=== PATIENT | male | born 1945 | race African-American/Black ===

== ENCOUNTER 2019-06-15 18:16 | Observation (INO) ==
[2019-06-15] MEDS ORDERED: ASPIRIN PO ONE ×2 (18:30→19:40)
[2019-06-15 18:40] LABS: BASO# 0.03 X1000 (0.0-0.2); BASO% 0.5 % (0.0-0.8); EOS# 0.19 X1000 (0.0-0.7); EOS% 2.9 % (0.0-10.0); HEMATOCRIT 40.4 % (42.0-52.0); HEMOGLOBIN 13.1 g/dL (14.0-18.0); LYMPH# 2.18 X1000 (1.2-3.4); LYMPH% 33.3 % (20.5-51.1); MCH 27.9 PG (27-31); MCHC 32.4 g/dL (33-37); MONO# 0.55 X1000 (0.11-0.59); MONO% 8.4 % (1.7-9.3); MPV 11.4 FL (7.4-10.4); NEUT% 54.9 % (42.2-75.2); PLT 165 X1000 (130-400); RDW 14.2 % (11.5-14.5); WBC 6.55 X1000 (4.8-10.8)
[2019-06-15 18:52] LABS: INR 0.95; PROTIME 12.8 Seconds (11.0-16.0)
[2019-06-15 18:53] LABS: PTT 28.5 Seconds (22.3-41.8)
--- NOTE | 2019-06-15 18:56 | Diag Imaging Result Doc PS360 ---
EXAM: CHEST-2 VIEWS - 06/15/2019 HISTORY: CP TECHNIQUE: Chest two views COMPARISON: 04/17/2012 FINDINGS: Heart size is normal. There is mild scarring at the left base, possibly from old granulomatous disease.. The lungs otherwise appear clear. There is no pleural effusion or pneumothorax identified. IMPRESSION: Mild scarring at left base. No evidence of acute disease. Electronically signed by Brandon Day 06/15/2019 6:54 PM
[2019-06-15 18:57] LABS: AGAP 17; ALB/GLOB RATIO 1.5; ALBUMIN 4.1 g/dL (3.5-5.0); ALKALINE PHOSPHATASE 71 U/L (32-122); BUN 13 mg/dL (8-22); CALCIUM 9.6 mg/dL (8.8-10.2); CHLORIDE 103 mmol/L (98-107); COSMO 291; CREATININE 1.1 mg/dL (0.7-1.2); ESTIMATED GFR > 60; GLUCOSE 212 mg/dL (70-104); GOT 23 U/L (10-34); GPT 12 U/L (10-44); POTASSIUM 4.2 mmol/L (3.5-5.1); SODIUM 143 mmol/L (136-145); TCO2 23 mmol/L (25-35); TOTAL BILIRUBIN 0.34 mg/dL (0.20-1.00); TOTAL PROTEIN 6.8 g/dL (6.3-8.3)
[2019-06-15 19:00] LABS: CK PROFILE 244 U/L (24-204)
--- NOTE | 2019-06-15 19:02 | PROVIDER DOCUMENTATION ---
HPI-General Adult - General Chief Complaint: Chest Pain Stated Complaint: CHEST PAIN/NUMBNESS IN FEET/SOB Time Seen by Provider: 06/15/19 18:59 Source: patient Allergies/Adverse Reactions: Patient Allergies Allergy/AdvReac Type Severity Reaction Status Date / Time No Known Allergies Allergy Verified 02/10/12 21:51 Home Medications: Home Medication List Medication Instructions Recorded Confirmed Last Taken Type Enalapril Maleate [Vasotec] 10 mg PO DAILY 02/10/12 02/10/12 02/10/12 07:00 History Ezetimibe/Simvastatin [Vytorin 1 each PO DAILY 02/10/12 02/10/12 02/10/12 07:00 History 10-20 mg Tablet] Furosemide [Lasix] 40 mg PO DAILY 02/10/12 02/10/12 02/10/12 07:00 History Glyburide/Metformin HCl 1 each PO BID 02/10/12 02/10/12 02/10/12 07:00 History [Glyburide-Metformin 5-500 mg] Terazosin HCl 5 mg PO DAILY 02/10/12 02/10/12 02/10/12 07:00 History Levofloxacin [Levaquin] 500 mg PO DAILY #7 tablet 04/30/12 Unknown Rx Tramadol/APAP [Ultracet 1 each PO Q8H #30 tablet 04/30/12 Unknown Rx 37.5MG/325Mg] - History of Present Illness -Gen Adult Nature of Presenting Problems: 74 year old AA Male presenting to the ED c/o 3 day h/o intermitent substernal pressure like chest pain lasting approximately 1 minute when it occurs is exacerbated with walking and exertion but also occurs at rest. PMH is significant for DMII, HLD, and an "irregular heartbeat". Review of Systems - Adult - REVIEW OF SYSTEMS - ADULT Constitutional: denies: chills, fever, fatique, night sweats Eyes: reports: no symptoms reported Ears, Nose, Mouth & Throat: reports: no symptoms reported Cardiovascular: reports: chest pain, edema (bilateral LE's left worse than right), palpitations Respiratory: reports: dyspnea on exertion Gastrointestinal: reports: no symptoms reported Genitourinary: reports: no symptoms reported Musculoskeletal: reports: no symptoms reported Integumentary: reports: no symptoms reported Neurological: reports: no symptoms reported Psychiatric: reports: no symptoms reported Endocrine: reports: no symptoms reported Hematologic/Lymphatic: reports: no symptoms reported Allergic/Immunologic: reports: no symptoms reported All Other Systems: Reviewed and Negative Past History - Adult - PAST MEDICAL HISTORY-ADULT Review of Records: reports: Old Records Reviewed, Nursing Assessment Review, Medications Reviewed, Social history reviewed & non-contributory. Major Childhood Illnesses: reports: denies history Cardiovascular: reports: hyperlipidemia Respiratory: reports: other (former smoker, scaring of left lung base) Gastrointestinal: reports: denies history Obstetrical/Gynecological: reports: denies history Genitourinary: reports: denies history Musculoskeletal: reports: denies history Psychiatric: reports: denies history Diabetes Type: Type 2 - PRIOR SURGERIES/PROCEDURES Surgical/Procedure History: reports: reviewed, not pertinent - IMMUNIZATION STATUS Flu Vaccine: NUTD - FAMILY HISTORY Family History: reviewed, not pertinent - SOCIAL HISTORY Smoking: quit greater than 1 year Substance Use: none/never Alcohol Use Frequency: never Physical Exam-General - PHYSICAL EXAM-ADULT Initial Vital Signs Reviewed: Yes (low O2) - CONSTITUTIONAL General Appearance: appears well, alert, no apparent distress - EYES Eyes: PERRL/EOMI - HEAD, EARS, NOSE, MOUTH & THROAT HENMT: normocephalic/atraumatic. negative: moist mucous membranes - NECK Neck: non-tender, full range of motion, supple, other (buccal neck) - RESPIRATORY Respiratory: chest non-tender, lungs clear, normal breath sounds - CARDIOVASCULAR Cardiovascular: normal peripheral pulses, regular rate, rhythm, no murmur, other (bilateral LE edema, left worse than right.) - GASTROINTESTINAL (ABDOMEN) Abdominal Exam: non tender, soft - MUSCULOSKELETAL Extremity: normal range of motion, non-tender, normal gait, calf tenderness (Left), pedal edema (left > right) Peripheral Pulses: radial (R): 2+, radial (L): 2+ - SKIN Integumentary: normal color, warm/dry - NEUROLOGIC Neurologic: grossly normal, no motor/sensory deficits - PSYCHIATRIC Psych/Mental Status: normal mood/affect, oriented x 3 Progress - PLAN OF CARE/RESULTS Progress/Plan/Lab Results: Vital Signs - 8 hr 06/15/19 18:23 Temperature 98.0 F Pulse Rate 78 Respiratory Rate 18 Blood Pressure 132/72 O2 Sat by Pulse Oximetry 94 L Laboratory Results - last 24 hr 06/15/19 06/15/19 06/15/19 18:31 18:31 18:31 WBC 6.55 RBC 4.70 Hgb 13.1 L Hct 40.4 L MCV 86.0 MCH 27.9 MCHC 32.4 L RDW Std Deviation 14.2 Plt Count 165 MPV 11.4 H Immature Gran % (Auto) 0.0 Neut % (Auto) 54.9 Lymph % (Auto) 33.3 Murray % (Auto) 8.4 Eos % (Auto) 2.9 Baso % (Auto) 0.5 Immature Gran # (Auto) 0.00 Neut # (Auto) 3.60 Lymph # (Auto) 2.18 Murray # (Auto) 0.55 Eos # (Auto) 0.19 Baso # (Auto) 0.03 PT 12.8 INR 0.95 PTT (Actin FS) 28.5 Sodium 143 Potassium 4.2 Chloride 103 Carbon Dioxide 23 L Anion Gap 17 BUN 13 Creatinine 1.1 Estimated GFR/1.73 m2 > 60 BUN/Creatinine Ratio 12 Glucose 212 H Calculated Osmolality 291 Calcium 9.6 Total Bilirubin 0.34 AST 23 ALT 12 Alkaline Phosphatase 71 Creatine Kinase 244 H Troponin T Total Protein 6.8 Albumin 4.1 Globulin 2.7 Albumin/Globulin Ratio 1.5 06/15/19 18:31 WBC RBC Hgb Hct MCV MCH MCHC RDW Std Deviation Plt Count MPV Immature Gran % (Auto) Neut % (Auto) Lymph % (Auto) Murray % (Auto) Eos % (Auto) Baso % (Auto) Immature Gran # (Auto) Neut # (Auto) Lymph # (Auto) Murray # (Auto) Eos # (Auto) Baso # (Auto) PT INR PTT (Actin FS) Sodium Potassium Chloride Carbon Dioxide Anion Gap BUN Creatinine Estimated GFR/1.73 m2 BUN/Creatinine Ratio Glucose Calculated Osmolality Calcium Total Bilirubin AST ALT Alkaline Phosphatase Creatine Kinase Troponin T < 0.010 Total Protein Albumin Globulin Albumin/Globulin Ratio Orders Category Date Time Status Cardiac Monitoring DIRECTED Care 06/15/19 18:30 Active Oxygen Therapy- ED Nursing DIRECTED Care 06/15/19 18:30 Active Saline Loc NOW Care 06/15/19 18:30 Active CHEST-2 VIEWS [RAD] Stat Exams 06/15/19 18:30 Completed CBC WITH ELECTRONIC DIFF [HEME] Stat Lab 06/15/19 18:31 Completed CK PROFILE [SP CHEM] Stat Lab 06/15/19 18:31 Results COMPREHENSIVE METABOLIC PANEL [CHEM] Stat Lab 06/15/19 18:31 Results PRO B-NATRIURETIC PEPTIDE Stat Lab 06/15/19 18:31 Received PROTIME WITH INR [COAG] Stat Lab 06/15/19 18:31 Completed PTT [COAG] Stat Lab 06/15/19 18:31 Completed TROPONIN T Stat Lab 06/15/19 18:31 Completed Aspirin Med 06/15/19 18:30 Discontinued 325 mg PO NOW ONE CP/SOB/Palp >45 yrs of Age Stat Oth 06/15/19 18:30 Ordered EKG [EKG] Stat Ther 06/15/19 18:30 Ordered HEART Score: 6 Well's PE Score: 3 Result Diagrams: 06/15/19 18:31 06/15/19 18:31 - XRAY 1 XRAY Study: Chest Impression: Abnormal (EXAM: CHEST-2 VIEWS - 06/15/2019 HISTORY: CP TECHNIQUE: Chest two views COMPARISON: 04/17/2012 FINDINGS: Heart size is normal. There is mild scarring at the left base, possibly from old granulomatous disease.. The lungs otherwise appear clear. There is no pleural effusion or pneumothorax identified. IMPRESSION: Mild scarring at left base. No evidence of acute disease. Electronically signed by Brandon Day 06/15/2019 6:54 PM 06/15/[id number] Interpreting Physician: Brandon Day MD Dictated Date/Time: 06/15/19 185 cc: Levon Abraham MD; Joyce Aguayo MD) - CONSULTS/PCP/HOSPITALIST Notification #1 *Consult/PCP/Hospitalist*: s/w Dr. Boyd who will resume care of the patie nt once admitted. Time Discussed: 20:54 Reason/Comments: HEART score 6, Pending CTA for Well's Score 3 Consult Disposition: Will see in ED Departure - Departure Date of Disposition Decision: 06/15/19 Time of Disposition Decision: 20:25 DIAGNOSIS: Dyspnea on exertion, Edema of left lower extremity, Hyperglycemia Chest pain Qualifiers: Ischemic chest pain type: unspecified angina pectoris type Obesity Qualifiers: Obesity classification: adult class 3 (BMI >= 40) Serious obesity comorbidity presence: with serious comorbidity Disposition: ADMITTED INPATIENT 09 Certified Medical Emergency: Emergent Condition: Fair Referrals and Follow-Ups: Joyce Aguayo MD [Primary Care Provider] - - Critical Care Note This patient required my direct & personal management of CC.: No Comments: Admission on basis of heart score 6 Attestation - Physician/ ARIANA Attestation Patient care was provided by Advanced Practice Provider:: No The physician spent face to face time with patient:: Yes Advanced Practice Provider documentation review:: Supervising physician onsite and consulted in the evaluation and care of this patient. The physician did have a face to face encounter with the patient.
[2019-06-15 19:16] LABS: CK INDEX 1.1 (0.0-2.5); CK-MB 2.72 ng/mL (0.0-5.0)
[2019-06-15] MEDS ORDERED: ASPIRIN ONE (19:49)
--- NOTE | 2019-06-15 19:54 | ED EKG INTERP ---
This chart was entered by Kiki Romero Scribe, acting as scribe for Farhan Silver DO. EKG Interpretation - EKG Time of EKG reading by physician:: 18:28 EKG Read and Signed by:: Farhan Silver EKG Interpretation (*Must complete 3 of following elements*): Abnormal Rate: 91 Rhythm: SR w/occ PVCs [place]: left QRS: normal ID Interval: normal ST Wave: non-specific ST changes (nonspecific t wave changes in septal leads) Comments: no stemi Attestation - Physician/ ARIANA Attestation Patient care was provided by Advanced Practice Provider:: No The physician spent face to face time with patient:: Yes Advanced Practice Provider documentation review:: Supervising physician onsite and consulted in the evaluation and care of this patient. The physician did have a face to face encounter with the patient. This chart was documented by the indicated scribe, (Kiki Romero Scribe) and accurately reflects the services I performed and decisions made by , Farhan Silver DO, as attested by the provider's signature.
--- NOTE | 2019-06-15 21:33 | Diag Imaging Result Doc PS360 ---
EXAM: CT ANGIOGRAM PULMONARY ARTERIES - 06/15/2019 HISTORY: r/o PE TECHNIQUE: CT angiogram pulmonary arteries with intravenous contrast. Axial, coronal, and 3-D MIP images are obtained. COMPARISON: None. FINDINGS: There are no filling defects identified in the pulmonary arteries. There is no indication of aortic dissection. There is some peripheral scarring with honeycombing. This is most prominent at the left upper lobe and right apex. There are scattered calcified granulomas and there are small calcified hilar and mediastinal lymph nodes from old granulomatous disease. There is no dense consolidation, pleural effusion, or pneumothorax identified. IMPRESSION: No evidence of pulmonary embolism. Peripheral scarring. No discrete pneumonia. Electronically signed by Brandon Day 06/15/2019 9:31 PM
[2019-06-15] MEDS ORDERED: NS 1,000 ML IV ONE (21:59)
--- NOTE | 2019-06-15 22:32 | HISTORY AND PHYSICAL ---
PRIMARY CARE PROVIDER: Jose Juan Aguayo MD CHIEF COMPLAINT: Chest pain. HISTORY OF PRESENT ILLNESS: This is a very pleasant 74-year-old male, who presents to the emergency room with complaint of three days of intermittent substernal chest pressure. He did not mention that it radiated. It would last approximately 1 minute, and it also had an exacerbation of shortness of breath. With the last episode he was up, walking around. Also he stated that it occurs at rest. He does have a past medical history that is significant for diabetes mellitus type 2, atypical chest pain, BPH, cervical spondylosis, hypertension, gout, hyperlipidemia, chronic back pain, kidney stones, and sleep apnea. He uses a CPAP machine. There was some worry about a PE related to his Wells Score. A CTA was completed, which ruled out pulmonary embolism. He was given aspirin in the emergency room. He will be admitted and have his cardiac enzymes trended with a stress test tomorrow morning. He also has lower extremity edema, but he has chronic pigmentation which makes me believe that it is chronic in nature. PAST MEDICAL HISTORY: See HPI. PREVIOUS SURGICAL HISTORY: Appendectomy, hemorrhoidectomy, lithotripsy, left elbow surgery due to repositioning of the ulnar nerve, bilateral carpal tunnel release, right shoulder surgery, back surgery. FAMILY HISTORY: Father from heart failure at 75. Mother at 47 related to ovarian cancer. SOCIAL HISTORY: Retired from [employer]. He smoked until 2002. Drinks socially. No illicit drugs. ALLERGIES: NO KNOWN DRUG ALLERGIES. HOME MEDICATIONS: A list of home medications has not been reconciled. An order was placed for nursing to reconcile home medications and place in the computer. These will be restarted when appropriate. REVIEW OF SYSTEMS: A 14 point review of systems is conducted with the patient. Pertinent positives listed above in the HPI. All other systems reviewed and found to be negative. PHYSICAL EXAMINATION: VITAL SIGNS: Temperature 98 degrees, pulse 78, respirations 18, blood pressure 132/72, oxygen saturation 95% on room air. GENERAL: Pleasant 74-year-old male, lying on the ER stretcher. He is alert and oriented x3. Answers all questions appropriately. He is in no acute distress. HEENT: Head is atraumatic, normocephalic. Pupils are equal, round, react to light. Extraocular eye movements intact. Sclera anicteric. Conjunctiva pink. Oral mucosa is moist. NECK: Supple. No JVD. No thyromegaly. Trachea is midline. No cervical lymphadenopathy. CARDIAC: S1, S2 appreciated. No murmurs, gallops, rubs. LUNGS: Clear to auscultation bilaterally. No rhonchi, wheezes, rales. Symmetric rise and fall of respirations. ABDOMEN: Protuberant, soft, nondistended, nontender. Bowel sounds present all 4 quadrants, normoactive. No pulsatile masses or organomegaly. EXTREMITIES: No clubbing or cyanosis. 1+ pitting edema bilateral lower extremities. Hyperpigmentation on bilateral lower extremities likely related to chronic venostasis. 2+ pedal pulses bilaterally. GENITOURINARY: No bladder distention. Patient voids. Otherwise deferred. NEUROLOGICAL: Alert and oriented x3. Cranial nerves 2 through 12 appear to be grossly intact. DIAGNOSTIC DATA: CT angio, no pulmonary edema. Chest x-ray mild scarring at the left base, otherwise no acute disease. LABORATORY DATA: Hemoglobin 13, hematocrit 40.4. Chemistry panel within normal limits other than a glucose of 112. CK 244, troponin less than 0.10. ASSESSMENT: 1. Chest pain, rule out acute myocardial infarction. 2. Diabetes mellitus type 2 with hyperglycemia. 3. Hypertension. 4. Hyperlipidemia. 5. Chronic pain syndrome. PLAN: Admit patient to the medical floor. Will continue to monitor cardiac enzymes. Will order a stress test tomorrow morning. Nursing to reconcile home medications. These will be restarted when appropriate. Sliding scale insulin with fingerstick blood sugars. Check hemoglobin A1c. Check a lipid profile. N.p.o. after midnight. Further recommendations based on patient's clinical course. Addendum Pt's clinical exam was essentially benign other than being morbidly obese with a Malampati stage 3 oropharynx and will benefit from sleep eval. His heart score is about 6 and will benefit from a stress test for further risk stratification. Dictated by FIDENCIO Akbar for Jesse Boyd MD cc: FIDENCIO Akbar MD Jagan Reddy, MD [facility]
--- NOTE | 2019-06-16 00:06 | EKG Report ---
Test Performed on : 06/15/2019 6:28:56 PM Test Reason : CP Blood Pressure : / mmHG Vent. Rate : 091 BPM Atrial Rate : 091 BPM P-R Int : 168 ms QRS Dur : 070 ms QT Int : 330 ms P-R-T Axes : 052 -18 050 degrees QTc Int : 405 ms Sinus rhythm. with occasional premature ventricular complexes. Low voltage QRS Inferior infarct (cited on or before 16-OCT-2011) Cannot rule out Anteroseptal infarct (cited on or before 16-OCT-2011) Abnormal ECG When compared with ECG of 19-APR-2012 06:44, premature ventricular complexes. are now present Nonspecific T wave abnormality, worse in Inferior leads Nonspecific T wave abnormality now evident in Lateral leads Unconfirmed Result
[2019-06-16] MEDS ORDERED: TYLENOL PO PRN (00:41)
[2019-06-16] MEDS: LOVENOX SUBQ SCH ×2 (00:41→22:49)
[2019-06-16] MEDS ORDERED: NITROGLYCERIN SL PRN (00:41)
[2019-06-16] MEDS ORDERED: ZOFRAN IV PRN (00:41)
[2019-06-16 01:05] LABS: HEMOGLOBIN A1C 8.9 % (4.8-6.0)
[2019-06-16 02:47] LABS: CK-MB 2.28 ng/mL (0.0-5.0)
[2019-06-16] MEDS: HUMALOG SUBQ SCH ×4 (06:44→22:48)
[2019-06-16] MEDS: PRILOSEC PO SCH (06:44)
[2019-06-16] MEDS ORDERED: LEXISCAN ONE (08:50)
[2019-06-16] MEDS: ASPIRIN PO SCH (11:15)
--- NOTE | 2019-06-16 14:05 | Diag Imaging Result Document ---
PROCEDURE NAME: MYOCARDIAL PERF SCAN, STR/REST - 06/16/2019 SUMMARY: The patient was administered 15.8 mCi of technetium-99m sestamibi, after which resting cardiac images were obtained. The patient was subsequently administered Lexiscan 0.4 mg intravenously, after which the heart rate went from 67 beats per minute to 86 beats per minute, and the blood pressure went from 131/74 to 122/67. With Lexiscan, the patient denied chest discomfort. Following the administration of Lexiscan, the patient was administered 47.7 mCi of technetium-99m sestamibi, after which gated stress cardiac images were obtained. Baseline ECG demonstrated sinus rhythm with moderate ventricular ectopy, low-voltage QRS, and delayed precordial R-wave progression. With Lexiscan, there were no diagnostic ST-segment changes. SPECT images were reconstructed in the short, horizontal, and vertical long axis. Review of these images demonstrated a [id number] moderate intensity perfusion defect involving the inferior wall on stress images, which appears similar on resting images. No significant reversibility is evident. Gated images demonstrate a calculated left ventricular ejection fraction of 53% with symmetrical wall motion/thickening. Left ventricular enlargement is suggested on SPECT images. CONCLUSIONS: 1. Adequate response to Lexiscan. 2. Clinically negative for chest pain. 3. Electrocardiographically negative for Lexiscan-induced myocardial ischemia. 4. Lexiscan sestamibi images demonstrate [id number] fixed moderate perfusion abnormality in the inferior wall, with corresponding preserved regional wall motion, potentially due to diaphragm attenuation artifact given the patient's body habitus/obesity. Prior nontransmural inferior infarction cannot entirely be excluded. Calculated left ventricular ejection fraction 53%, and left ventricular enlargement suggested on SPECT images. Clinical correlation is recommended. cc: MD Gigi John CRNP
[2019-06-16 14:51] LABS: CK INDEX 1.2 (0.0-2.5); CK-MB 2.75 ng/mL (0.0-5.0)
--- NOTE | 2019-06-16 22:31 | CARDIOLOGY CONSULTATION ---
DATE: 06/16/2019 REQUESTING PHYSICIAN: Dr. Aguayo. REASON FOR CONSULTATION: Chest pain. HISTORY: Mr. Robert is a pleasant 74-year-old black gentleman who was admitted to the emergency room yesterday, where he presented with complaints of relatively sudden onset of chest discomfort that started as he was cleaning a building. 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 He ended up coming to the emergency room at about 6:30 p.m. They did a chest x-ray that showed "mild scattering at the left base." A 12-lead electrocardiogram at that time showed sinus rhythm with PVC, poor R-wave progression across the precordial leads and a question of inferior scar. Blood work initially showed a troponin level of 0.010 and repeated 6 hours later was also 0.010. However, the high sensitivity troponin that has been done at 1:35 p.m. is elevated at 23 ng/L. CPK was slightly elevated when he 1st came in at 244 units. CK-MB fraction was slightly elevated but the index is negative. After admission, he has been chest pain free. They did a stress test today that was read by Dr. Oscar indicating a medium to large fixed moderate perfusion abnormality in the inferior wall with preserved wall motion. Question of nontransmural infarction versus diaphragmatic attenuation cannot be excluded. The patient's proBNP level was normal upon presentation. His BUN and creatinine were also normal. His hemoglobin A1c was 8.9% at the time of presentation. His LDL cholesterol was 92 and HDL 37 at the time of presentation. TSH 4.83 mIU/mL. PAST MEDICAL HISTORY: Positive for hypertension for many years. He has had diabetes mellitus also for a number of years, at least 8. He has some issues with gout. He is morbidly obese with a body mass index 40.7%. He has sleep apnea syndrome. He has had kidney stones in the past. SURGICAL HISTORY: He has had back surgery a number of years ago. He has had bilateral carpal tunnel release. He has had right shoulder surgery. He has had lithotripsy, appendectomy, hemorrhoidectomy. Left elbow surgery. FAMILY HISTORY: Father of atherosclerosis in his mid 70s. Mother of cancer. SOCIAL HISTORY: He is to his for 50 years. He has 2 children. Six grand children. He quit smoking after 30 years in 2002. Not a drinker. ALLERGIES: Negative. HOME MEDICATIONS: Listed at this time included Vasotec 10 mg daily, ezetimibe/simvastatin 10-20 daily, furosemide 40 mg daily, glyburide/metformin 5-500 twice a day, and terazosin 5 mg daily. REVIEW OF SYSTEMS: He has gradually gained weight since his mcc about 40 pounds. He has not been as active. He has chronic back pain that limits him from doing physical activity, although he tries to some. He has had occasional chest discomfort lately, this has become more significant. On the CT scan of the chest that was done yesterday, June 15, there was evidence of coronary artery calcification. There was no pulmonary embolism. PHYSICAL EXAMINATION: Vital signs: Today, blood pressure 135/66, temperature 98 degrees, pulse 63, respirations 20. General: The patient is awake, alert, oriented, in no distress. HEENT: Unremarkable. Chest: Sounds clear to auscultation and percussion. Heart: Sounds are regular rhythmic. No gallop or murmur. Abdomen: Obese, nontender. No masses. No hepatomegaly. Extremities: Show good pulses. No peripheral edema. Neurological: Nonfocal. Moves 4 extremities. IMPRESSION: 1. Patient presenting with chest discomfort which is somewhat suspicious for angina pectoris. He has an abnormal myocardial perfusion stress test with a question of scar in the inferior wall without clear-cut ischemia. His high sensitivity troponin level has become positive. He probably has coronary heart disease, especially based on the presence of coronary atherosclerosis on the CT scan of the chest. 2. Morbid obesity. 3. Sleep apnea syndrome. 4. Long-term diabetes mellitus. 5. Long-term hypertension. RECOMMENDATION: At this time, I have discussed with him the possible avenues of diagnosis. Based on all the aforementioned abnormal tests, my recommendation is to pursue left heart catheterization. Benefits, complications have been explained in detail. He understood and requested to proceed. We will set it up for tomorrow morning. cc: MD Jose Juan Murillo MD MTDD
--- NOTE | 2019-06-17 00:30 | PROGRESS NOTE ---
DATE: 06/16/2019 HISTORY OF PRESENT ILLNESS: The patient is a 74-year-old male who came to the emergency room last night with new onset of exertional shortness of breath. He is well known to my practice and seen in March of 2019. Emergency room workup was reviewed, the patient was seen twice. PAST MEDICAL HISTORY: Reviewed. PAST SURGICAL HISTORY: Reviewed. MEDICINES: Reviewed. ALLERGIES: Not known. PHYSICAL EXAMINATION: Vital Signs: Temperature is 97.8 degrees, pulse is 70. Vitals are stable. HEENT: Within normal limits. Neck: Supple. Chest: Clear. Heart: Sounds are regular. Abdomen: Soft, obese, nontender. Extremities: No peripheral edema or cyanosis. Neurologic: No obvious neurological deficits. LABORATORY DATA: White cell count 6.5, hematocrit 40, platelets 165,000. PT/INR is normal. SMA 7 is normal. Glucose 212. A1c 8.9. CK-MB index negative. Troponin is negative, but high sensitivity was slightly positive. ProBNP was normal. Triglycerides 120, cholesterol 138, LDL 92. IMAGIN. Myocardial perfusion scan, positive inferior wall ischemia, EF is 53%. 2. CT pulmonary angiogram, no evidence of pulmonary embolism. 3. Chest x-ray, mild scarring in the left base, no evidence of acute disease. ASSESSMENT: 1. A 74-year-old white male basically admitted to the hospital with a new onset of exertional shortness of breath, ruled out for OK, positive stress test as well as high sensitivity troponin. 2. Diabetes, uncontrolled, A1c 8.9. 3. LDL 93. 4. AAA at 4.6 cm, stable. PLAN OF CARE: 1. Continue on aspirin. 2. Reconcile home medications. 3. We will hold the metformin in light of left heart catheterization. 4. I spoke to Dr. Alvarez and he has arranged a schedule for left heart catheterization in the morning, and I spoke to Dr. Oscar and he is going to do it. Based on the catheterization further recommendations will be followed. LEVEL OF DOCUMENTATION: 30 minutes. cc: Jose Juan Aguayo MD
[2019-06-17] MEDS: HUMALOG SUBQ SCH ×4 (06:38→21:18)
[2019-06-17] MEDS: PRILOSEC PO SCH (06:38)
[2019-06-17] MEDS ORDERED: HEPARIN 1000 UNITS/NS 2,000 UNIT/1,000 ML IV.SOLN ONE (08:12)
[2019-06-17] MEDS: ZOCOR PO SCH (08:25)
[2019-06-17] MEDS: VASOTEC PO SCH (08:25)
[2019-06-17] MEDS: ASPIRIN PO SCH (08:25)
[2019-06-17] MEDS: HYTRIN PO SCH (08:26)
[2019-06-17] MEDS: ZETIA PO SCH (08:27)
[2019-06-17] MEDS ORDERED: VERSED ONE (10:15)
[2019-06-17] MEDS ORDERED: ANESTHESIA PB SET 88 IN 5742 ONE (10:15)
[2019-06-17] MEDS ORDERED: NS 1,000 ML ONE (10:15)
[2019-06-17] MEDS ORDERED: MORPHINE ONE (10:15)
--- NOTE | 2019-06-17 13:09 | EKG Report ---
Test Performed on : 06/17/2019 12:57:43 PM Test Reason : POST HEART CATH Blood Pressure : / mmHG Vent. Rate : 071 BPM Atrial Rate : 071 BPM P-R Int : 188 ms QRS Dur : 078 ms QT Int : 386 ms P-R-T Axes : 029 -23 001 degrees QTc Int : 419 ms Sinus rhythm. with marked sinus arrhythmia. Inferior infarct (cited on or before 16-OCT-2011) Anterior infarct (cited on or before 16-OCT-2011) Abnormal ECG When compared with ECG of 15-JUN-2019 18:28, (Unconfirmed) premature ventricular complexes. are no longer present Confirmed by Guzman TOM, Dewayne Buck ([id number]) on 06/19/2019 7:00:56 PM
[2019-06-17] MEDS: LASIX PO SCH (15:43)
[2019-06-17] MEDS: LOVENOX SUBQ SCH (21:18)
--- NOTE | 2019-06-18 01:35 | PROGRESS NOTE ---
DATE: 06/17/2019 SUBJECTIVE: The patient is doing well and has a positive high sensitive troponin and some possible ischemia in the inferior wall. Given the risk factors, he has been scheduled for left heart catheterization. No complaints. OBJECTIVE: Vital signs: Temperature is 97 degrees, pulse is 80. Vitals are stable. General: The patient is sitting out of the bed, comfortable. Chest: Clear. Heart: Sounds are distant. Abdomen: Soft, obese, nontender. Neurologic: No obvious deficits. ASSESSMENT AND PLAN: Shortness of breath on exertion. Positive stress test in light of risk factors. Scheduled for left heart catheterization. In the meantime, continue on secondary prevention, which includes control the A1c, LDL. A1c around 7. LDL below 70 and optimize the treatment. Based on the catheterization, further recommendations will be followed. Present LDL is 92. Will follow up. LEVEL OF DOCUMENTATION: Was 25 minutes. cc: Jose Juan Aguayo MD
[2019-06-18] MEDS: LOVENOX SUBQ SCH (04:17)
[2019-06-18] MEDS: HUMALOG SUBQ SCH ×2 (06:49→11:32)
[2019-06-18] MEDS: PRILOSEC PO SCH (06:49)
[2019-06-18 07:16] LABS: CREATININE 1.1 mg/dL (0.7-1.2); MAGNESIUM 2.3 mg/dL (1.5-2.7)
[2019-06-18 07:17] VITALS: BP 128/77
[2019-06-18] MEDS ORDERED: FLU VACCINE IM ONE (08:21)
[2019-06-18] MEDS: VASOTEC PO SCH (08:37)
[2019-06-18] MEDS: HYTRIN PO SCH (08:37)
[2019-06-18] MEDS: ZETIA PO SCH (08:37)
[2019-06-18] MEDS: ZOCOR PO SCH (08:37)
[2019-06-18] MEDS: ASPIRIN PO SCH (08:37)
[2019-06-18] MEDS: LASIX PO SCH (08:37)
--- NOTE | 2019-06-20 22:56 | DISCHARGE SUMMARY ---
ADMISSION DATE: 06/16/2019 DISCHARGE DATE: 06/18/2019 DISCHARGING DIAGNOSES: 1. Exertional shortness of breath due to noncritical coronary artery disease. 2. Type 2 diabetes, hypertension, hyperlipidemia, AAA 4.6 cm. 3. History of cervical spondylosis, benign prostatic hypertrophy (BPH), gout, kidney stones, sleep apnea on CPAP machine. PROCEDURES: 1. Myocardial perfusion scan. Findings: No chest pain. Lexiscan showed possible ischemia in the inferior wall. Ejection fraction 53%. 2. CT angiogram. No evidence of pulmonary embolism. 3. Chest x-ray. Mild scarring in the left base. 4. Cardiac catheterization. Findings: Reported nonperipheral flow studies, mostly proximal RCA 50 to 60 percent and obtuse marginal and circumflex. BRIEF HISTORY: Please see the history and physical that was done by hospitalist. In brief, he is a 74-year-old male with above problems, came in with exertional shortness of breath. The patient was ruled out for PE. EKG is nondiagnostic. Initial cardiac enzymes were negative. Nevertheless, troponin I high sensitive was slightly positive. He does have risk factors. Further workup, Lexiscan showed possible ischemia in the inferior wall. As a result, left heart catheterization was done by Dr. Oscar, reported noncritical lesions. At this time, he does not need to require any interventions. Continue medical management with the followin. Aspirin. 2. LDL less than 70. 3. Nitrates with the beta blockers. Findings were discussed with the patient. LABS: CBC: White cell count 6.5, hematocrit 40, platelets 165,000, PT 12, INR 0.9. Sodium 143, potassium 4.2, chloride 103, BUN 13, creatinine 1.1, glucose 212. A1c 8.9, triglycerides 120, cholesterol 138, LDL 92. DISCHARGE INSTRUCTIONS: 1. Flu vaccine 06/18/2019. Pneumococcal vaccine was given in the hospital. 2. Glyburide/metformin 5/500 one tab p.o. b.i.d., resume after 48 hours. 3. Vasotec 10 daily, Lasix 40 daily, Hytrin 5 mg daily, Vytorin 10/20 daily, increasing with 10 to 40 mg. keep the LDL less than 70. Coreg 3.125 p.o. b.i.d., isosorbide 60 mg daily, coated aspirin 81 mg daily. 4. Follow up in my office in 10 days. cc: MD Dr. Antonio Mann
--- NOTE | 2019-07-07 23:50 | CARDIAC CATH REPORT ---
PROCEDURE PERFORMED: Left heart catheterization with selective coronary angiography and left ventriculography. Entry site: Right femoral artery. Catheters used: A 5-Norwegian JL5, 3DRC and angled pigtail. TECHNIQUE: After intravenous sedation with Versed and morphine, local anesthesia with lidocaine was applied over right femoral artery. Arterial access was established with placement of a 5- Norwegian sheath in the right femoral artery using modified Seldinger technique. Selective coronary angiography was performed, followed by left heart catheterization and left ventriculography. Upon completion of the procedure, the arterial sheath was removed from the right femoral artery and hemostasis facilitated with manual pressure. The patient tolerated the procedure without apparent complications. FINDINGS: Hemodynamics: Aortic pressure 120/69. Left ventricular pressure 116 over EDP of 5. Comments on hemodynamics: There is no significant gradient across the aortic valve demonstrated on pullback from the left ventricle. Angiography: 1. Left ventriculogram: The left ventricle is of normal size without wall motion abnormality evident on STARKEY projection. The estimated left ventricular ejection fraction is approximately 60%. There is no significant mitral regurgitation. 2. The left main coronary artery: The left main coronary artery is free of significant coronary stenosis. 3. Left anterior descending coronary: The left anterior descending coronary gives rise to a large first diagonal branch proximally. The left anterior descending coronary is free of significant coronary stenosis. The first diagonal branch demonstrates a moderate (60% to 70%) focal stenosis at midvessel. 4. Left circumflex coronary: The left circumflex coronary artery is dominant, giving rise to posterior descending artery. The proximal and mid left circumflex coronary are free of significant coronary stenosis. The distal left circumflex coronary artery demonstrates a segment of moderate (40% to 50%) narrowing. 5. Right coronary artery: The small nondominant right coronary artery demonstrates a moderate to severe (70% to 80%) focal stenosis proximally. CONCLUSIONS: 1. Normal left ventricular systolic function without wall motion abnormality evident on STARKEY projection. 2. Left dominant coronary anatomy as described, with moderate stenosis in midportion of large first diagonal branch, moderate segmental stenosis in distal left circumflex coronary artery, and moderate to severe stenosis proximally in nondominant right coronary artery. RECOMMENDATIONS: Medical management of patient's coronary atherosclerosis is recommended. cc: MD Jose Juan John MD [facility]
== END 2019-06-18 11:48 | disposition home or self-care (01) ==
LOC: ED 18:16 → 4N 18:16 → SUATTDRO 06-16 03:38
PROVIDERS: ADMIT Internal Medicine; ATTEND Internal Medicine